=== PATIENT | male | born 1935 | race Caucasian/White ===

== ENCOUNTER 2016-11-04 09:11 | Emergency (ER) | payer MEDICARE, OTHER ==
[2015-09-14 12:54] VITALS: BMI 23.7
[~2016-11-04 09:11] MED LIST: BAYER CHEWABLE81 MG PO; COREG12.5 MG PO; COUMADIN5 MG PO; LASIX20 MG PO; LASIX40 MG PO; LIPITOR40 MG PO; PLAVIX75 MG PO; PROSCAR5 MG PO; ZYLOPRIM300 MG PO; entresto PO
[2016-11-04 09:39] LABS: BASOPHILS 0.2 % (0.0-2.0); EOSINOPHILS 2.1 % (0-7); HEMATOCRIT 46.5 % (42.0-54.0); HEMOGLOBIN 15.6 g/dL (13.5-17.5); IMMATURE GRANULOCYTES 0.2 % (0-5); LYMPHOCYTES 16.8 % (15-50); MCH 33.1 pg (26.0-34.0); MCHC 33.5 g/dL (31.0-37.0); MCV 98.7 fL (80.0-100.0); MEAN PLATELET VOLUME 10.7 fL (7.4-10.4); MONOCYTES 10.2 % (2-11); NEUTROPHILS 70.5 % (40-80); PLATELET COUNT 108 10x3/uL (130-400); RBC 4.71 10x6/uL (4.20-6.10); RDW 14.7 % (11.5-14.5); WBC 5.8 10x3/uL (4.8-10.8)
[2016-11-04 09:46] LABS: INR 2.16 (0.85-1.17); PROTIME 24.1 SECONDS (11.6-15.0)
[2016-11-04 09:53] LABS: ALBUMIN 4.2 g/dL (3.4-5.0); ANION GAP 13.6 mmol/L (8-16); BILIRUBIN - TOTAL 0.74 mg/dL (0.2-1.3); CALCIUM 9.5 mg/dL (8.5-10.1); CARBON DIOXIDE 25.6 mmol/L (21.0-32.0); CREATININE - SERUM 1.7 mg/dL (0.6-1.3); POTASSIUM - SERUM 4.2 mmol/L (3.5-5.1); PROTEIN - SERUM 6.7 g/dL (6.4-8.2)
[2016-11-04 10:19] LABS: APPEARANCE CLEAR (CLEAR); BILIRUBIN NEGATIVE (NEGATIVE); COLOR YELLOW (YELLOW); GLUCOSE NEGATIVE (NEGATIVE); KETONE NEGATIVE (NEGATIVE); LEUKOCYTE ESTERASE NEGATIVE (NEGATIVE); NITRITE NEGATIVE (NEGATIVE); PROTEIN TRACE mg/dL (NEGATIVE); SPECIFIC GRAVITY 1.015 (1.005-1.020); UROBILINOGEN NORMAL (NORMAL); WHITE CELLS - URINE 0-5 /hpf (0-5)
[2016-11-04 10:21] LABS: BACTERIA FEW /hpf (NONE SEEN); EPITHELIAL CELLS 0-5 /hpf (0-5); HYALINE CAST 0-5 /lpf (NONE SEEN); MUCUS <1+ /lpf (NONE SEEN); RED CELLS - URINE 0-5 /hpf (0-5)
== END 2016-11-04 10:36 | disposition home or self-care (01) ==
LOC: D.ER 09:11
PROVIDERS: Emergency Medicine
DX: K59.00 Constipation, unspecified (principal); N28.9 Disorder of kidney and ureter, unspecified; R73.9 Hyperglycemia, unspecified

== ENCOUNTER 2017-09-24 10:54 | Outpatient (CLI) | payer MEDICARE, OTHER ==
[~2017-09-24] VITALS: Ht 185.4 cm; Wt 85.0 kg
--- NOTE | ~2017-09-24 | HEMODYNAMI ---
PATIENT:JESUS MUHAMMAD MEDICAL RECORD: [id number] : 33 LOCATION:D.CAT ADMISSION DATE: 09/24/17 Generatedon:09/24/201713:39 Patient name: JESUS MUHAMMAD Patient #: [id number] SSN: : 1935 Date of study: 09/24/2017 Page: Of Hemodynamic Procedure Report Patient Data Patient Demographics Procedure consent was obtained First Name: JESUS Gender: Male Last Name: SABINA : 1935 Middle Initial: E Age: 82 year(s) Patient #: [id number] Race: Unknown Additional ID: [id number] Contact details [address]: [address] [place] [address] State: [place] City: [place] Zip code: [address] Past Medical History Allergies Allergen Reaction Date Comments Reported Penicillins 09/24/2017 Sulfa drugs 09/24/2017 Other allergy 09/24/2017 tetracycline Admission Admission Data Admission Date: 09/24/2017 Admission Time: 10:54 Height (in.): 72 BSA: 2.14 (m2) Height (cm.): 182.88 BMI: 27.53 (kg/m2) Weight (lbs.): 203 Weight (kg.): 92.08 Lab Results Lab Result Date: 09/24/2017 Lab Result Time: 0:00 Biochemistry Name Units Result Min Max BUN mg/dl 58 --(----)-* 7 18 Creatinine mg/dl 1.8 --(----)-* 0.6 1.3 CBC Name Units Result Min Max Hemoglobin g/dl 14.9 --(-*--)-- 13.5 17.5 Coagulation Name Units Result Min Max PT sec 20.1 --(----)-* 11.6 15 PTT sec 1.77 *-(----)-- 22.8 39.4 Procedure Procedure Types Cath Procedure Diagnostic Procedure LHC Coronaries w/Grafts Aortic Root Angiography Miscellaneous Procedures Moderate Sedation up to 15 minutes Procedure Description Procedure Date Procedure Date: 09/24/2017 Procedure Start Time: 13:12 Procedure End Time: 13:34 Procedure Staff Name Function Jono Victoria MD Performing Physician Valerie Jack RT Monitor Jordyn Zamudio RT Scrub Louis Rainey RN Nurse Procedure Data Cath Procedure Fluoroscopy Diagnostic fluoroscopy Total fluoroscopy Time: 6.2 time: 6.2 min min Diagnostic fluoroscopy Total fluoroscopy dose: 959 dose: 959 mGy mGy Contrast Material Contrast Material Type Amount (ml) Isovue 300 99 Entry Location Entry Primary Successful Side Size Upsize Upsize Entry Closure Succes sful Closure Location (Fr) 1 (Fr) 2 (Fr) Remarks Device Remarks Femoral Right 5 Fr Exoseal artery Estimated blood loss: 10 ml Diagnostic catheters Device Type Used For End Catheter Placement MULTIPACK JL 4.0 5Fr Procedure catheter DIAGNOSTIC JL 5 5Fr Procedure catheter ([id number]) DIAGNOSTIC AR 2 MOD 5 Fr Procedure catheter ([id number]) DIAGNOSTIC IM 5Fr Procedure catheter ([id number]) MULTIPACK Pigtail 5 Fr Aortic Root catheter Angiography Procedure Complications No complications Procedure Medications Medication Administration Route Dosage Oxygen NC 2 l/min Lidocaine 2% added to field 20 Heparin Flush Bag added to field 2 bags (1000units/500ml NS) 0.9% NaCl I.V. 100 ml/hr Versed I.V. 0.5 mg Fentanyl I.V. 25 mcg Versed I.V. 0.5 mg Fentanyl I.V. 25 mcg Fentanyl I.V. 25 mcg Hemodynamics Rest BSA: 2.14 (m2) HGB: 14.9 (g/dl) O2 Consumption: Estimated: 243.27 (ml/min) O2 Co nsumption indexed: Estimated:113.68 (ml/min/m) Heart Rate: 70 (bpm) Snapshots Pre Cath Intra NCS Post Cath Vital Signs Time Heart Resp SPO2 NIBP (mmHg) Rhythm Pain Sedation Rate (ipm) (%) Status Level (bpm) 13:01:15 70 17 100 126/62(102) Paced 0 (11) 10(A) , No pain 13:05:27 69 15 100 123/64(104) Paced 0 (11) 10(A) , No pain 13:09:39 84 13 97 113/58(96) Paced 0 (11) 9(A) , No pain 13:13:51 86 17 97 105/56(84) Paced 0 (11) 9(A) , No pain 13:18:01 81 17 96 102/55(81) Paced 0 (11) 9(A) , No pain 13:22:11 68 15 95 105/52(68) Paced 0 (11) 9(A) , No pain 13:26:20 69 15 95 99/55(80) Paced 0 (11) 9(A) , No pain 13:30:28 69 16 96 104/55(76) Paced 0 (11) 9(A) , No pain 13:34:38 69 15 100 107/56(83) Paced 0 (11) 10(A) , No pain Medications Time Medication Route Dose Verified Delivered Reason Notes Effe ctiveness by by 12:59:47 Oxygen NC 2 Jono Buffie used for l/min Julien Rainey RN procedure 12:59:55 Lidocaine 2% added 20ml Jono Jono for local to vial Julien Victoria MD anesthetic field 13:00:01 Heparin Flush added 2 Jono Jono used for Bag to bags Julien Victoria MD procedure (1000units/500ml field NS) 13:00:09 0.9% NaCl I.V. 100 Jono Buffie Per ml/hr Julien Rainey RN physician 13:03:59 Versed I.V. 0.5 Jono Buffie for mg Julien Rainey RN sedation 13:04:04 Fentanyl I.V. 25 Jono Buffie for mcg Julien Rainey RN sedation 13:09:31 Versed I.V. 0.5 Jono Buffie for mg Julien Rainey RN sedation 13:09:34 Fentanyl I.V. 25 Jono Buffie for mcg Julien Rainey RN sedation 13:12:50 Fentanyl I.V. 25 Jono Buffie for mcg Julien Rainey RN sedation Procedure Log Time Note 12:45:52 Patient Height : 72 inches 12:45:56 Patient Weight : 203 lbs 12:48:58 Lab Result : BUN 58 mg/dl 12:48:58 Lab Result : PT 20.1 sec 12:48:58 Lab Result : PTT 1.77 sec 12:48:58 Lab Result : Creatinine 1.8 mg/dl 12:48:58 Lab Result : Hemoglobin 14.9 g/dl 12:49:30 Diagnostic Cath status Elective 12:49:38 Louis Rainey RN sent for patient. Start room use. 12:49:40 Time tracking: Regular hours 12:49:44 Plan of Care:Hemodynamics will remain stable., Cardiac rhythm will remain stable., Comfort level will be maintained., Respiratory function will remain adequate., Patient/ family verbilizes understanding of procedure., Procedure tolerated without complication., Recovers from procedure without complications.. 12:50:14 Patient received from Pre/Post Procedure Room to CCL 2 Alert and oriented. Tansferred to table in Supine position. 12:59:47 Oxygen 2 l/min NC was administered by Louis Rainey RN; used for procedure; 12:59:55 Lidocaine 2% 20ml vial added to field was administered by Jono Victoria MD; for local anesthetic; 12:59:58 Warm blankets applied, and brook hugger turned on for patient comfort. 12:59:58 Correct patient and procedure confirmed by team. 12:59:59 ECG and BP/O2 sat monitors applied to patient. 13:00:01 Heparin Flush Bag (1000units/500ml NS) 2 bags added to field was administered by Jono Victoria MD; used for procedure; 13:00:02 Signed procedure consent form obtained from patient. 13:00:04 Vital chart was started 13:00:09 0.9% NaCl 100 ml/hr I.V. was administered by Louis Rainey RN; Per physician; 13:00:09 Rhythm: sinus rhythm 13:00:11 Full Disclosure recording started 13:00:19 H&P Date Dictated: 09/11/2017 Within 30 days and on chart., H&P Addendum completed by physician on day of procedure. (MUST COMPLETE FOR ALL OUTPATIENTS). 13:00:20 Pre-procedure instructions explained to patient. 13:00:21 Pre-op teaching completed and patient verbalized understanding. 13:00:22 Family in patients room. 13:00:24 Patient NPO since Midnight. 13:00:31 Patient allergic to Penicillins 13:00:36 Patient allergic to Sulfa drugs 13:00:49 Patient allergic to Other allergytetracycline 13:00:52 Is the patient allergic to Iodine/contrast media? No. 13:01:04 Is patient on blood thinner?Yes 13:01:11 Patient diabetic? Yes. 13:01:16 If diabetic: On Metformin? No 13:01:42 Coumadin 09/20/17 13:01:51 Previous problem with sedation/anesthesia? No ? 13:01:52 Snore? Yes 13:01:52 Sleep apnea? No 13:01:53 Deviated septum? No 13:01:54 Opens mouth fully? Yes 13:01:55 Sticks out tongue? Yes 13:01:57 Airway obstruction? No ? 13:01:59 Dentures? No ? 13:02:31 Pre procedure: right dorsailis pedis pulse 2+ Normal; easily identifiable; not easily obliterated 13:02:36 Patient pain scale 0/10 ?. 13:02:42 IV patent on arrival in left hand with 0.9% NaCl at [facility]. 13:02:44 Lab results completed and on chart. 13:02:48 Right groin area was prepped with chlora-prep and draped in sterile fashion 13:02:48 Alarms reviewed by R. N. 13:02:49 Sharps counted by scrub and verified by R.N. 13:02:54 Use device set Femoral Dx 13:02:55 ACIST Syringe (55603) opened to sterile field. 13:02:56 Bag Decanter (2002S) opened to sterile field. 13:02:56 Medline Cath Pack ([id number]) opened to sterile field. 13:02:56 SHEATH 5FR [place] (ZBI297) opened to sterile field. 13:02:57 DIAGNOSTIC WIRE .035 260cm J wire (649119) opened to sterile field. 13:02:59 ACIST Hand Control (87538) opened to sterile field. 13:02:59 ACIST Manifold (56674) opened to sterile field. 13:03:00 DIAGNOSTIC Multipack 5Fr catheter set ([id number]) opened to sterile field. 13:03:00 Tegaderm 4 x 4 (1626W) opened to sterile field. 13:03:01 PERCUTANEOUS ENTRY 19GA needle opened to sterile field. 13:03:12 Final Timeout: patient, procedure, and site verified with staff and physician. All members of the team are in agreement. 13:03:13 Right groin site verified by team. 13:03:17 Physical assessment completed. ASA score P 2 - A patient with mild systemic disease as per Jono Victoria MD. 13:03:20 Sedation plan: IV Moderate Sedation Medication:Versed, Fentanyl 13:03:23 Baseline sample Acquired. 13:03:59 Versed 0.5 mg I.V. was administered by Louis Rainey RN; for sedation; 13:04:04 Fentanyl 25 mcg I.V. was administered by Louis Rainey RN; for sedation; 13:06:17 Baseline sample Acquired. 13:09:31 Versed 0.5 mg I.V. was administered by Louis Rainey RN; for sedation; 13:09:34 Fentanyl 25 mcg I.V. was administered by Louis Rainey RN; for sedation; 13:12:38 Procedure started. 13:12:50 Fentanyl 25 mcg I.V. was administered by Louis Rainey RN; for sedation; 13:12:51 Local anesthetic to right femoral artery with Lidocaine 2% by Jono Victoria MD.INITIAL ACCESS ONLY 13:13:19 A 5 Fr sheath was inserted into the Right Femoral artery 13:16:08 A MULTIPACK JL 4.0 5Fr catheter was advanced over the wire and used for Procedure. 13:16:57 Catheter removed. 13:17:53 A DIAGNOSTIC JL 5 5Fr catheter ([id number]) was advanced over the wire and used for Procedure. 13:18:00 LCA angiography performed. 13:20:31 Catheter removed. 13:21:11 A DIAGNOSTIC AR 2 MOD 5 Fr catheter ([id number]) was advanced over the wire and used for Procedure. 13:21:29 SVG angiography performed. 13:21:40 SVG to RCA angiography performed. 13:25:47 Catheter removed. 13:26:33 A DIAGNOSTIC IM 5Fr catheter ([id number]) was advanced over the wire and used for Procedure. 13:28:12 Catheter removed. 13:28:30 A MULTIPACK Pigtail 5 Fr catheter was advanced over the wire and used for Aortic Root Angiography. 13:31:25 Aortic Root visualized 13:31:28 Catheter removed. 13:31:35 EXOSEAL 5Fr (EX500) opened to sterile field. 13:32:40 Sheath removed intact; hemostasis achieved with Exoseal to the Right Femoral artery. 13:32:46 Procedure ended.(Physican Out) 13:32:57 Fluoroscopy time 06.20 minutes. 13:33:03 Flurop Dose total: 959 13:33:03 Fluoroscopy dose: 959 mGy 13:33:07 Contrast amount:Isovue 300 99ml. 13:33:09 Sharps counted by scrub and verified by R.N. 13:33:16 Insertion/operative site no bleeding no hematoma. 13:33:19 Post-op/insertion site Right Femoral artery dressed using a 4 x 4 and Tegaderm. 13:33:29 Post Procedure Pulses reassessed and unchanged 13:33:34 Post-procedure physical assessment completed. ASA score P 2 - A patient with mild systemic disease as per Jono Victoria MD. 13:33:39 Post procedure rhythm: unchanged. 13:33:44 Estimated blood loss: 10 ml 13:33:46 Post procedure instruction explained to patient.Patient verbalizes understanding. 13:33:47 Patient needs reinforcement of post procedure teaching. 13:33:54 Procedure and supply charges have been captured, reviewed, submitted and are correct. 13:34:31 Procedure Complication : No complications 13:34:33 Vital chart was stopped 13:34:34 See physician's report for complete and final results. 13:34:36 Report given to Pre/Post Procedure Room. 13:34:40 Patient transfered to Pre/Post Procedure Room with Stretcher. 13:34:42 Procedure ended. 13:34:42 Full Disclosure recording stopped 13:34:45 End room use (Document Last) 13:37:10 Procedure type changed to Cath procedure, Diagnostic procedure, LHC, Coronaries w/Grafts, Aortic Root Angiography, Miscellaneous Procedures, Moderate Sedation up to 15 minutes Device Usage Item Name Manufacture Quantity Catalog Hospital Part Current Minimal Lot# / Number Charge Number Stock Stock Serial# Code ACIST Acist 1 69879 368842 955942 809769 20 Syringe Medical (60277) Systems Inc Bag Decanter Microtek 1 2001S 559444 41639 235255 5 () Medical Inc. Medline Cath Cardinal 1 [id number] 539646 00850 330707 5 Pack Health ([id number]) SHEATH 5FR Terumo 1 [id number] 147650 566414 533702 40 [place] (NQL364) DIAGNOSTIC [place] 1 277390 813164 916795 719316 30 WIRE .035 260cm J wire (472090) ACIST Hand Acist 1 65504 989722 966407 462612 5 Control Medical (72545) Systems Inc ACIST Acist 1 61316 705251 944168 796793 5 Manifold Medical (52507) Systems Inc DIAGNOSTIC Cardinal 1 [id number] 849326 53228 759711 30 Multipack Health 5Fr catheter set (ZV6545) Tegaderm 4 x 3M 1 1626W 725148 376368 737413 5 4 (1626W) PERCUTANEOUS Cook Medical 1 Z40831 804839 494024 5 ENTRY 19GA needle MULTIPACK JL Cardinal 1 108301 5 4.0 5Fr Health catheter DIAGNOSTIC Cardinal 1 [id number] 123330 603588 452564 5 JL 5 5Fr Health catheter (591400I) DIAGNOSTIC Cardinal 1 [id number] 012199 403925 274346 20 AR 2 MOD 5 Health Fr catheter (345512V) DIAGNOSTIC Cardinal 1 875375W 589036 962834 344235 5 IM 5Fr Health catheter (818293V) MULTIPACK Cardinal 1 561324 5 Pigtail 5 Fr Health catheter EXOSEAL 5Fr Cardinal 1 EX500 298882 838819 557222 10 (EX500) Health Signature Audit [place] Stage Time Signature Unsigned Intra-Procedure 09/24/2017 Valerie Jack 1:39:01 PM RT(R) Signatures Monitor : Valerie Jack Signature : RT Date : Time : [place] [id number] [place] [address]
[2017-09-24] MEDS ORDERED: GLUCOTROL ER2.5 MG PO (11:17)
[2017-09-24] MEDS ORDERED: RESTORIL15 MG PO (11:17)
[2017-09-24] MEDS ORDERED: ULTRAM50 MG PO (11:18)
[2017-09-24 11:23] VITALS: BP 123/54; Ht 185.4 cm; Wt 85.0 kg
[2017-09-24 11:32] LABS: BASOPHILS 0.4 % (0-2); EOSINOPHILS 3.4 % (0-7); HEMATOCRIT 43.5 % (42.0-54.0); HEMOGLOBIN 14.9 g/dL (13.5-17.5); IMMATURE GRANULOCYTES 0.4 % (0-5); LYMPHOCYTES 12.5 % (15-50); MCH 32.2 pg (26.0-34.0); MCHC 34.3 g/dL (31.0-37.0); MONOCYTES 7.8 % (2-11); NEUTROPHILS 75.5 % (40-80); RBC 4.63 10x6/uL (4.20-6.10); WBC 11.4 10x3/uL (4.8-10.8)
[2017-09-24 11:33] LABS: PLATELET COUNT 237 10x3/uL (130-400)
[2017-09-24 11:49] LABS: INR 1.77 (0.85-1.17); PROTIME 20.1 SECONDS (11.6-15.0)
[2017-09-24 11:50] LABS: ANION GAP 13.6 mmol/L (8-16); CALCIUM 10.2 mg/dL (8.5-10.1); CARBON DIOXIDE 27.7 mmol/L (21.0-32.0); CREATININE - SERUM 1.8 mg/dL (0.6-1.3); POTASSIUM - SERUM 4.3 mmol/L (3.5-5.1)
--- NOTE | 2017-09-24 14:05 | NUR ---
2L NC, NO RESP DISTRESS. RIGHT GROIN 5F EXOSEAL CDI, NO BLEEDING OR HEMATOMA NOTED. NO C/O PAIN OR NAUSEA. VSS. AT BEDSIDE, CALL LIGHT WITHIN REACH.
--- NOTE | 2017-09-24 14:35 | NUR ---
2L NC, NO RESP DISTRESS. RIGHT GROIN 5F EXOSEAL CDI, NO BLEEDING OR HEMATOMA NOTED. NO C/O PAIN OR NAUSEA. VOIDED 300CC OF CLEAR YELLOW URINE. VSS. WILL CONTINUE TO MONITOR CLOSELY.
--- NOTE | 2017-09-24 14:50 | NUR ---
RIGHT GROIN 5F EXOSEAL CDI, NO BLEEDING OR HEMATOMA NOTED. 2L NC, NO RESP DISTRESS. NO C/O AT THIS TIME. VSS. FAMILY AT BEDSIDE, CALL LIGHT WITHIN REACH.
--- NOTE | 2017-09-24 15:22 | NUR ---
HOB ELEVATED 30 DEGREES. RIGHT GROIN 5F EXOSEAL CDI, NO BLEEDING NOTED. WILL CONTINUE TO MONITOR CLOSELY.
--- NOTE | 2017-09-24 15:45 | NUR ---
LEFT WRIST PIV D/C'D WITH CATHETER INTACT, BAND AID TO SITE. UP TO BEDSIDE TO GET DRESSED.
--- NOTE | 2017-09-24 15:52 | NUR ---
DISCHARGE INSTRUCTIONS GIVEN, VERBALIZED UNDERSTANDING.
--- NOTE | 2017-09-24 16:04 | NUR ---
TAKEN OUT VIA WHEELCHAIR BY CATH WELT SEWER. LEFT FACILITY WITH FAMILY AND ALL PERSONAL BELONGINGS.
== END 2017-09-24 16:04 | disposition home or self-care (01) ==
LOC: D.CATH 10:54
PROVIDERS: Internal Medicine Cardiovascular Disease
DX: I25.110 Atherosclerotic heart disease of native coronary artery with unstable angina pectoris (principal); R06.02 Shortness of breath; R60.9 Edema, unspecified; Z01.812 Encounter for preprocedural laboratory examination

== ENCOUNTER 2019-02-08 06:32 | Inpatient (IN) | payer MEDICARE, OTHER ==
[~2019-02-08 06:32] MED LIST changes: +GLUCOTROL ER2.5 MG PO; +RESTORIL15 MG PO; +ULTRAM50 MG PO
[2019-02-08 06:52] LABS: BASOPHILS 0.2 % (0-2); EOSINOPHILS 3.1 % (0-7); HEMATOCRIT 44.7 % (42.0-54.0); HEMOGLOBIN 15.5 g/dL (13.5-17.5); IMMATURE GRANULOCYTES 0.4 % (0-5); LYMPHOCYTES 22.1 % (15-50); MCH 33.1 pg (26.0-34.0); MCHC 34.7 g/dL (31.0-37.0); MCV 95.5 fL (80.0-100.0); MONOCYTES 10.8 % (2-11); NEUTROPHILS 63.4 % (40-80); RBC 4.68 10x6/uL (4.20-6.10); RDW 15.1 % (11.5-14.5); WBC 5.6 10x3/uL (4.8-10.8)
[2019-02-08 06:55] LABS: PLATELET COUNT 126 10x3/uL (130-400)
[2019-02-08 07:06] LABS: APPEARANCE CLEAR (CLEAR); BILIRUBIN NEGATIVE (NEGATIVE); COLOR YELLOW (YELLOW); GLUCOSE NEGATIVE (NEGATIVE); KETONE NEGATIVE (NEGATIVE); NITRITE NEGATIVE (NEGATIVE); PROTEIN NEGATIVE (NEGATIVE); SPECIFIC GRAVITY 1.015 (1.005-1.020); UROBILINOGEN NORMAL (NORMAL)
--- NOTE | 2019-02-08 07:14 | NUR ---
BEDSIDE REPORT HANDED OFF TO JEZ ORTIZ VIA SBAR.
[2019-02-08 07:21] LABS: ALBUMIN 3.7 g/dL (3.4-5.0); ANION GAP 14.3 mmol/L (8-16); BILIRUBIN - TOTAL 0.53 mg/dL (0.2-1.3); CALCIUM 9.5 mg/dL (8.5-10.1); CREATININE - SERUM 1.5 mg/dL (0.6-1.3); POTASSIUM - SERUM 4.3 mmol/L (3.5-5.1); PROTEIN - SERUM 6.8 g/dL (6.4-8.2)
[2019-02-08 07:28] LABS: TROPONIN-I 0.017 ng/mL (0.000-0.060)
--- NOTE | 2019-02-08 08:01 | NUR ---
PT C/O PAIN AND BURNING IN RIGHT ARM S/P MSO4 BEING GIVEN FLUSHED WITH NORMAL SALINE AND BOLUS IS INFUSING. NOTIFIED. NO ORDERS AT THIS TIME.
--- NOTE | 2019-02-08 08:35 | NUR ---
PT TO CT VIA STRETCHER.
--- NOTE | 2019-02-08 08:58 | NUR ---
PT RESTING ON LEFT SIDE STATES HE IS FEELING BETTER.
--- NOTE | 2019-02-08 12:25 | NUR ---
RECIEVED TO ROOM FROM ER VIA WC. SL TO R HAND PATENT. BRUISING NOTED TO BILAT ARMS. STATES THAT ABDOMINAL PAIN STARTED AROUND MIDNIGHT LAST NIGHT.
[2019-02-08 12:31] VITALS: BP 126/44; BMI 25.2
--- NOTE | 2019-02-08 12:40 | NUR ---
MORPHINE AND ZOFRAN GIVEN SLOW IVP FOR C/O ABDOMINAL PAIN.
[2019-02-08 13:59] LABS: PROTIME 46.6 SECONDS (11.6-15.0)
[2019-02-08 14:40] LABS: INR 5.15 (0.85-1.17)
--- NOTE | 2019-02-08 15:20 | NUR ---
SPOKE WITH DR MOSER REGARDING CRITICAL PT/INR. RECIEVED ORDERS TO HOLD COUMADIN AND RECHECK PT/INR IN AM.
--- NOTE | 2019-02-08 15:55 | NUR ---
MARINE ENGINE MACHINIST SHOWING PACED 69 PER TECH.
[2019-02-08 16:35] VITALS: BP 106/51
--- NOTE | 2019-02-08 17:32 | NUR ---
RESTING QUIETLY IN BED READING NEWSPAPER. AT BEDSIDE. DENIES ANY NEEDS AT THIS TIME.
--- NOTE | 2019-02-08 18:57 | NUR ---
PT IN BED. A&O X 4. AT BEDSIDE. ASSISTED PT TO BATHROOM PER REQUEST. DENIES FURTHER NEEDS AT THIS TIME.
[2019-02-08 20:08] VITALS: BP 105/60
--- NOTE | 2019-02-08 23:17 | NUR ---
I have reviewed this patient and I concur with the Shift Assessment completed by the Licensed Practical Nurse today this shift.
[2019-02-09 00:41] VITALS: BP 110/66
[2019-02-09 05:42] VITALS: BP 107/62
[2019-02-09 06:16] LABS: BASOPHILS 0.2 % (0-2); EOSINOPHILS 2.8 % (0-7); HEMATOCRIT 39.8 % (42.0-54.0); HEMOGLOBIN 13.5 g/dL (13.5-17.5); IMMATURE GRANULOCYTES 0.2 % (0-5); LYMPHOCYTES 20.4 % (15-50); MCH 32.6 pg (26.0-34.0); MCHC 33.9 g/dL (31.0-37.0); MCV 96.1 fL (80.0-100.0); MEAN PLATELET VOLUME 10.5 fL (7.4-10.4); MONOCYTES 8.3 % (2-11); NEUTROPHILS 68.1 % (40-80); PLATELET COUNT 118 10x3/uL (130-400); RBC 4.14 10x6/uL (4.20-6.10); RDW 15.3 % (11.5-14.5); WBC 5.1 10x3/uL (4.8-10.8)
[2019-02-09 06:43] LABS: ALBUMIN 3.1 g/dL (3.4-5.0); BILIRUBIN - TOTAL 0.56 mg/dL (0.2-1.3); CREATININE - SERUM 1.4 mg/dL (0.6-1.3); INR 5.47 (0.85-1.17); PROTEIN - SERUM 5.5 g/dL (6.4-8.2); PROTIME 48.9 SECONDS (11.6-15.0)
--- NOTE | 2019-02-09 09:40 | NUR ---
PATIENT ALERT AND ORIENTED THIS MORNING SITTING UP IN CHAIR. NO COMPLAINTS OR PAIN OF DISCOMFORT AT THIS TIME. ATE 100% OF BREAKFAST. XRAY CALLED AND PATIENT WILL HAVE GALL BLADDER STUDY TOMORROW. TO BE NPO AFTER MIDNIGHT AND NO PAIN MEDICATION. INFORMED PATIENT OF THIS. WILL CONTINUE TO MONITOR. CALL LIGHT WITHIN REACH.
[2019-02-09 10:33] VITALS: BP 106/68
--- NOTE | 2019-02-09 14:15 | NUR ---
PATIENT WAS TAKEN FOR GI STUDY VIA WHEELCHAIR.
[2019-02-09 16:26] VITALS: BP 129/63
--- NOTE | 2019-02-09 17:49 | HP ---
PATIENT: JESUS MUHAMMAD MEDICAL RECORD: [id number] ACCOUNT: [id number] LOCATION:[facility] D.1204 : 33 ADMISSION DATE: 02/08/19 PCP: ATTILA AGUIRRE MD HISTORY AND PHYSICAL EXAMINATION DATE OF ADMISSION: 02/08/2019. CHIEF COMPLAINT: Abdominal pain. HISTORY OF PRESENT ILLNESS: This is an 84-year-old white male who had a sudden onset of right upper quadrant abdominal pain started around midnight on 02/07/2019. It woke him up. The pain then moved diffusely. He denies fever or chills. No significant nausea or vomiting. He never had pain like this before and it did radiate to his back. He denies chest pain or shortness of breath. In the ER, his lab was fairly unremarkable. CT of the abdomen and pelvis without contrast showed some cholelithiasis and some distention of gallbladder. He is admitted for further evaluation. PAST MEDICAL AND SURGICAL HISTORY: Coronary artery disease, hyperlipidemia, hypertension, arthritis, BPH, diabetes, atrial fibrillation, and CHF. PAST SURGICAL HISTORY: He has had defibrillator/pacemaker placed. ALLERGIES: LYRICA, MACRODANTIN, METFORMIN, PENICILLIN, SULFA, AND TETRACYCLINE. HOME MEDICATIONS: Furosemide 40 mg twice a day, finasteride 5 mg once a day, tramadol only if needed, allopurinol 300 mg once a day, temazepam 15 mg q.h.s. p.r.n. sleep, Entresto one p.o. b.i.d., warfarin 5 mg once a day, glimepiride ER 2.5 once a day, and carvedilol 12.5 twice a day. HABITS: Former smoker, occasional alcohol, no illicit drug use. SOCIAL HISTORY: , retired from the [employer] up in the [place]. 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 FAMILY HISTORY: Both parents are . There is a history of cardiovascular disease and diabetes in his parents. Sibling with hypertension. REVIEW OF SYSTEMS: GENERAL: No major weight changes. HEENT: No particular sinus or allergy problems. RESPIRATORY: No history of asthma, COPD. CARDIAC: Does have a history of heart disease, atrial fibrillation, and congestive heart failure. GASTROINTESTINAL: No significant diarrhea, constipation, or heartburn. GENITOURINARY: He has BPH. MUSCULOSKELETAL: He has arthritic aches and pains. NEUROLOGIC: No migraines or seizures. PSYCHIATRIC: Denies depression or melancholia. PHYSICAL EXAMINATION: VITAL SIGNS: Temperature 98.1, pulse 78, respirations 20, and blood pressure 126/44. GENERAL: He is awake and alert. He does not appear to be in acute distress. SKIN: Warm and dry. HISTORY AND PHYSICAL [id number] SABINAJESUS HEENT: Grossly within normal limits. NECK: Supple. No bruit. HEART: Regular rate and rhythm. LUNGS: Clear. ABDOMEN: With some mild diffuse tenderness at this time. There is some increased tenderness in the right upper quadrant. No guarding or rebound. No mass. RECTAL: Not done. EXTREMITIES: No edema. LABORATORY DATA: Urinalysis is normal. CBC showed a white count of 5600, hemoglobin 15.5, platelets are little low at 126,000. Basic metabolic panel is all okay except BUN 46 and creatinine 1.5. Liver functions are all normal. Troponin normal. Amylase and lipase were okay. CT of the abdomen and pelvis without contrast showed some cholelithiasis, some distention of gallbladder. ASSESSMENT: 1. Right upper quadrant pain started late last night, now more diffuse pain. 2. Cholelithiasis on CT of abdomen. PLAN: We will admit. We will check INR. We will get an ultrasound of the gallbladder. Other tests or procedures as warranted. TRANSINT:[id number] Voice Confirmation ID: [id number] DOCUMENT ID: [id number] MACI MOSER MD at 1749 CC: [id number] DICTATION DATE: 02/08/192322 PLANT HEALTH MANAGER: 02/09/19 0011 ADM IN [facility] [address] [place] [address]
--- NOTE | 2019-02-09 18:26 | NUR ---
PATIENT BACK FROM GI TEST. IV RESTARTED TO L FOREARM. FED LUNCH SINCE HE WAS VERY HUNGRY. AT BEDSIDE. BS 121. WILL CONTINUE TO MONITOR. CALL LIGHT WITHIN REACH.
[2019-02-09 21:31] VITALS: BP 106/40
--- NOTE | 2019-02-09 23:12 | NUR ---
PT C/O OF HAVRaman'T HAS BM FOR FOUR DAYS, CALLED DR MOSER AND ORDERED MILK OF MAGNESIA FOR PT.
[2019-02-10 00:19] VITALS: BP 116/70
--- NOTE | 2019-02-10 00:36 | NUR ---
I HAVE REVIEWED THIS PATIENT AND I CONCUR WITH THE SHIFT ASSESSMENT COMPLETED BY THE LICENSED PRACTICAL NURSE THIS SHIFT.
[2019-02-10 04:30] VITALS: BP 112/68
[2019-02-10 06:53] LABS: BASOPHILS 0.2 % (0-2); EOSINOPHILS 2.9 % (0-7); HEMATOCRIT 40.9 % (42.0-54.0); HEMOGLOBIN 13.6 g/dL (13.5-17.5); IMMATURE GRANULOCYTES 0.2 % (0-5); LYMPHOCYTES 24.3 % (15-50); MCH 32.2 pg (26.0-34.0); MCHC 33.3 g/dL (31.0-37.0); MCV 96.9 fL (80.0-100.0); MEAN PLATELET VOLUME 10.3 fL (7.4-10.4); MONOCYTES 9.3 % (2-11); NEUTROPHILS 63.1 % (40-80); PLATELET COUNT 118 10x3/uL (130-400); RBC 4.22 10x6/uL (4.20-6.10); RDW 15.3 % (11.5-14.5); WBC 5.6 10x3/uL (4.8-10.8)
[2019-02-10 07:01] LABS: ANION GAP 10.2 mmol/L (8-16); CARBON DIOXIDE 28.8 mmol/L (21.0-32.0); CREATININE - SERUM 1.6 mg/dL (0.6-1.3)
[2019-02-10 07:04] LABS: INR 4.58 (0.85-1.17); PROTIME 42.5 SECONDS (11.6-15.0)
[2019-02-10 07:30] VITALS: BP 137/69
--- NOTE | 2019-02-10 07:36 | NUR ---
Moose FROM DR. AGUIRRE DULIVONX SUPP Q4HP.
--- NOTE | 2019-02-10 10:10 | NUR ---
PT STATES HE HAD RESULTS FROM SUPPOSITORY. HE STATES HE HAD A LARGE BM.
[2019-02-10 12:54] VITALS: BMI 25.2
[2019-02-10 13:02] VITALS: BP 108/44
--- NOTE | 2019-02-10 14:16 | NUR ---
ALERT AND ORIENTED X4. DULCOLAX SUPP AFFECTIVE. AGREE WITH RETAIL COVERAGE MERCHANDISER ASSESSMENT. PALMA ASHLEY RESUME PLAN OF CARE AND SAFETY PRECAUTIONS.
[2019-02-10 16:56] VITALS: BP 121/53
--- NOTE | 2019-02-10 19:26 | NUR ---
AT BED SIDE. CALL LIGHT IN REACH.
[2019-02-10 20:15] VITALS: BP 118/52
--- NOTE | 2019-02-11 00:08 | NUR ---
REST IN BED, CALL LIGHT IN REACH.
[2019-02-11 01:34] VITALS: BP 119/57
--- NOTE | 2019-02-11 03:44 | NUR ---
REST QUIETLY IN BED, CALL LIGHT IN REACH.
[2019-02-11 05:52] VITALS: BP 134/67
[2019-02-11 06:18] LABS: BASOPHILS 0.2 % (0-2); EOSINOPHILS 2.9 % (0-7); HEMATOCRIT 41.7 % (42.0-54.0); HEMOGLOBIN 13.8 g/dL (13.5-17.5); IMMATURE GRANULOCYTES 0.2 % (0-5); LYMPHOCYTES 22.6 % (15-50); MCH 32.2 pg (26.0-34.0); MCHC 33.1 g/dL (31.0-37.0); MCV 97.4 fL (80.0-100.0); MEAN PLATELET VOLUME 10.9 fL (7.4-10.4); MONOCYTES 10.6 % (2-11); NEUTROPHILS 63.5 % (40-80); PLATELET COUNT 126 10x3/uL (130-400); RBC 4.28 10x6/uL (4.20-6.10); RDW 15.1 % (11.5-14.5); WBC 5.5 10x3/uL (4.8-10.8)
[2019-02-11 06:26] LABS: ANION GAP 12.5 mmol/L (8-16); CALCIUM 9.3 mg/dL (8.5-10.1); CARBON DIOXIDE 26.3 mmol/L (21.0-32.0); CREATININE - SERUM 1.7 mg/dL (0.6-1.3); POTASSIUM - SERUM 3.8 mmol/L (3.5-5.1)
[2019-02-11 06:36] LABS: INR 2.69 (0.85-1.17); PROTIME 27.8 SECONDS (11.6-15.0)
--- NOTE | 2019-02-11 07:20 | NUR ---
INITIAL ROUNDING ON THE PATIENT, HE IS AWAKE AND RESTING IN THE BED. HE DENIES PAIN, CALL LIGHT IN REACH
[2019-02-11 08:49] VITALS: BP 107/61
--- NOTE | 2019-02-11 10:32 | MORECARE ---
CASE MANAGEMENT DISCHARGE SUMMARY PATIENT: JESUS MUHAMMAD UNIT: [id number] ADM DATE: 02/10/19 AGE: 84 : 34 SEX: M ROOM/BED: D.1204 AUTHOR: GEORGE,DOC PHYSICIAN: REFERRING PHYSICIAN: MACI MOSER MD DATE OF SERVICE: 02/11/19 Discharge Plan Patient Name: JESUS MUHAMMAD [facility] [facility] 1935 Planned Disposition: Home Anticipated Discharge Date: 02/09/19 Discharge Date: Expected LOS: -1 Initial Reviewer: [email or web address] Initial Review Date: 02/09/2019 Generated: 02/11/19 11:32 am Comments DCP- Discharge Planning Updated by [email or web address]: Nita Fernandez on 02/11/19 9:[address] Patient Name: JESUS MUHAMMAD Admission Status: ER Accout number: [id number] Admission Date: 02-10-2019 : 1935 Admission Diagnosis: Attending: MACI MOSER Current LOS: 1 Anticipated DC Date: 02-09-2019 Planned Disposition: Home Primary Insurance: MEDICARE A & B Discharge Planning Comments: CM met with patient about discharge planning. CM explained CM role and verbal consent was given to do dc assessment. CM educated on Home Health, DME and rehab services that are available. Patient states his discharge plan is to return to home . States home environment is safe for DC. Denies any discharge planning needs at this time. States or son will drive him home upon discharge. CM will continue to follow and assist as needed with discharge planning needs. Parquet Floor Layer: Nita Fernandez DCPIA - Discharge Planning Initial Assessment Updated by [email or web address]: Nita Fernandez on 02/11/19 10:31 am * Is the patient Alert and Oriented? Yes * How many steps to enter\exit or inside your home? na * PCP gambian * Pharmacy [facility] * Preadmission Environment Home with Family * ADLs Independent * Verbal permission to speak to the caregivers and representatives has been obtained from the patient. N/A * Community resources currently utilized None * Additional services required to return to the preadmission environment? No * Can the patient safely return to the preadmission environment? Yes * Has this patient been hospitalized within the prior 30 days at any hospital? No Patient Name: JESUS MUHAMMAD Page [id number] at 1032 All edits/amendments must be made on the electronic document DICTATION DATE: 02/11/191031 CREDIT CONTROL ADMINISTRATOR: ASHISH 02/11/191031 RPT#: [id number] DC DATE: STATUS: ADM IN [facility] [address] [place] [address] END OF REPORT
[2019-02-11 17:07] VITALS: BP 138/56
--- NOTE | 2019-02-11 19:45 | NUR ---
PT LYING IN BED. CALL LIGHT IN REACH. PT DENIES NEEDS OR PAIN AT THIS TIME. A/O X4. BED IN LOW. SIDE RAILS X2. IN ROOM. RESP EVEN AND UNLABORED.
[2019-02-11 20:00] VITALS: BP 104/62
[2019-02-12] VITALS (9 sets, daily range): BP systolic 110–158; BP diastolic 51–63
[2019-02-12 05:14] LABS: BASOPHILS 0.4 % (0-2); EOSINOPHILS 3.1 % (0-7); HEMATOCRIT 40.1 % (42.0-54.0); HEMOGLOBIN 13.6 g/dL (13.5-17.5); IMMATURE GRANULOCYTES 0.4 % (0-5); LYMPHOCYTES 20.1 % (15-50); MCH 32.8 pg (26.0-34.0); MCHC 33.9 g/dL (31.0-37.0); MCV 96.6 fL (80.0-100.0); MEAN PLATELET VOLUME 10.8 fL (7.4-10.4); MONOCYTES 10.3 % (2-11); NEUTROPHILS 65.7 % (40-80); PLATELET COUNT 119 10x3/uL (130-400); RBC 4.15 10x6/uL (4.20-6.10); RDW 15.2 % (11.5-14.5); WBC 5.2 10x3/uL (4.8-10.8)
--- NOTE | 2019-02-12 05:32 | NUR ---
PT RESTING QUIETLY. CALL LIGHT IN REACH. DENIES NEEDS AT THIS TIME. WCTM
[2019-02-12 05:41] LABS: ANION GAP 10.6 mmol/L (8-16); CARBON DIOXIDE 29.1 mmol/L (21.0-32.0); CREATININE - SERUM 1.8 mg/dL (0.6-1.3); POTASSIUM - SERUM 3.7 mmol/L (3.5-5.1)
[2019-02-12 05:49] LABS: INR 1.54 (0.85-1.17); PROTIME 17.9 SECONDS (11.6-15.0)
--- NOTE | 2019-02-12 07:30 | NUR ---
ASSESSMENT COMPLETE. NPO FOR PROCEDURE TODAY. SL TO L FA. PLATEN PRESS FEEDER SHOWING PACED 69 PER TECH. DENIES ANY NEEDS AT THIS TIME.
--- NOTE | 2019-02-12 10:50 | NUR ---
IV TO L FA LEAKING. IV REMVOED. CATHETER TIP INTACT. UNABLE TO RESITE IV X 2 ATTEMPTS.
--- NOTE | 2019-02-12 11:40 | NUR ---
20 GUAGE SITED TO LEFT WRIST BY KALINA RICOBANQUET CHEF X 1 ATTEMPT.
--- NOTE | 2019-02-12 12:50 | NUR ---
OFF FLOOR TO OR VIA STRETCHER.
[2019-02-12] MEDS ORDERED: HYDROCODON-ACE1 EAC7 PO (14:40)
--- NOTE | 2019-02-12 15:58 | NUR ---
RECEIVED PATIENT FROM PACU. POST-VITAL SIGNS AT 1545 ARE STABLE. THE PATIENT DENIES ANY PAIN.
--- NOTE | 2019-02-12 19:25 | NUR ---
PT SITTING UP IN BED ALERT AND ORIENTED. PT COMPLAINS OF 4/10 PAIN IN EPIGASTRIC Area AT INCISION SITE. PRN PAIN MED GIVEN. NO S/S OF DISTRESS. VITALS STABLE. BED LOW, SIDE RAILS UP X2, SLIP SOCKS ON, CALL LIGHT WITHIN REACH. WILL CONTINUE TO MONITOR.
--- NOTE | 2019-02-13 05:44 | NUR ---
PT COMPLAINS OF GAS/PRESSURE IN ABDOMEN. WILL CONTINUE TO MONITOR.
--- NOTE | 2019-02-13 07:15 | NUR ---
PT RESTING IN BED, EYES OPEN. POD 1 LAP SAADIA. 4 LAP SITES TO ABDOMEN, COVERED WITH STERISTRIPS. SITES C/D. PT STANDBY ASSIST. NO C/O PAIN. NO S/S OF ACUTE DISTRESS NOTED. ON ELECTROLYTE PROTOCOL. SCDS PRESENT, OFF AT THIS TIME. PT WANTED THEM OFF FOR A WHILE. PT ON TELEMETRY 83 PACED. PT ACHS. PT ON 2L, O2 NC. IV TO LEFT WRIST, SL. SITE PATENT WITHOUT REDNESS OR SWELLING. BOWEL SOUNDS ACTIVE. LUNGS CLEAR. PT DENIES ANYTHING FURTHER AT THIS TIME. CALL LIGHT IN REACH. WILL CONTINUE TO MONITOR.
[2019-02-13 08:09] VITALS: BP 136/61
--- NOTE | 2019-02-13 08:15 | NUR ---
PT O2 SAT @ 89% ON 2L O2, NC. INCREASED BY 1L, STILL STATING AT 89-90%. INCREASED BY ANOTHER 1L, STATING @ 91%. INCREASED TO A TOTAL OF 5L O2, PT STATING @ 95% ON 5L O2, NC.
--- NOTE | 2019-02-13 09:42 | MORECARE ---
CASE MANAGEMENT DISCHARGE SUMMARY PATIENT: JESUS MUHAMMAD UNIT: [id number] ADM DATE: 02/10/19 AGE: 84 : 34 SEX: M ROOM/BED: D.1204 AUTHOR: GEORGE,DOC PHYSICIAN: REFERRING PHYSICIAN: MACI MOSER MD DATE OF SERVICE: 02/13/19 Discharge Plan Patient Name: JESUS MUHAMMAD [facility] [facility] 1935 Planned Disposition: Home Anticipated Discharge Date: 02/09/19 Discharge Date: Expected LOS: -1 Initial Reviewer: [email or web address] Initial Review Date: 02/09/2019 Generated: 02/13/19 10:42 am Comments DCP- Discharge Planning Updated by [email or web address]: Nita Fernandez on 02/11/19 9:[address] Patient Name: JESUS MUHAMMAD Admission Status: ER Accout number: [id number] Admission Date: 02-10-2019 : 1935 Admission Diagnosis: Attending: MACI MOSER Current LOS: 1 Anticipated DC Date: 02-09-2019 Planned Disposition: Home Primary Insurance: MEDICARE A & B Discharge Planning Comments: CM met with patient about discharge planning. CM explained CM role and verbal consent was given to do dc assessment. CM educated on Home Health, DME and rehab services that are available. Patient states his discharge plan is to return to home . States home environment is safe for DC. Denies any discharge planning needs at this time. States or son will drive him home upon discharge. CM will continue to follow and assist as needed with discharge planning needs. Ecclesiastical Worker: Nita Fernandez DCPIA - Discharge Planning Initial Assessment Updated by [email or web address]: Nita Fernandez on 02/11/19 10:31 am * Is the patient Alert and Oriented? Yes * How many steps to enter\exit or inside your home? na * PCP [place] * Pharmacy [facility] * Preadmission Environment Home with Family * ADLs Independent * Verbal permission to speak to the caregivers and representatives has been obtained from the patient. N/A * Community resources currently utilized None * Additional services required to return to the preadmission environment? No * Can the patient safely return to the preadmission environment? Yes * Has this patient been hospitalized within the prior 30 days at any hospital? No Last DP export: 02/11/19 9:32 am Patient Name: JESUS MUHAMMAD Page [id number] at 0942 All edits/amendments must be made on the electronic document DICTATION DATE: 02/13/19940 VAMP PRESSER: ASHISH 02/13/19940 RPT#: [id number] DC DATE: STATUS: ADM IN [facility] [address] [place] [address] END OF REPORT
--- NOTE | 2019-02-13 09:50 | MORECARE ---
CASE MANAGEMENT DISCHARGE SUMMARY PATIENT: JESUS MUHAMMAD UNIT: [id number] ADM DATE: 02/10/19 AGE: 84 : 34 SEX: M ROOM/BED: D.1204 AUTHOR: GEORGE,DOC PHYSICIAN: REFERRING PHYSICIAN: MACI MOSER MD DATE OF SERVICE: 02/13/19 Discharge Plan Patient Name: JESUS MUHAMMAD Facility: [facility]:[place] : 1935 Planned Disposition: Home Anticipated Discharge Date: 02/09/19 Discharge Date: Expected LOS: -1 Initial Reviewer: [email or web address] Initial Review Date: 02/09/2019 Generated: 02/13/19 10:49 am Comments DCP- Discharge Planning Updated by [email or web address]: Gogo Anderson on 02/13/19 8:[address] POSSIBLE DISCHARGE TO HOME TODAY. HE WILL HAVE TRANSPORTATION TO HOME. HIS SON, ECHO, WILL PROVIDE TRANSPORTATION. PATIENT HAS BEEN FOR 60 YRS. LIVES W/ HIS . HE DOES NOT HAVE HOME HEALTH SERVICES. HIS IS ACTIVE WITH [employer]. HE DOES NOT FEEL HE WILL NEED ANY SERVICES. HE IS PRESENTLY ON OXYGEN AT 4/L VIA NASAL CANNULA. HIS NURSE STATES HIS O2 SAT WAS 89% ON 2/L THIS AM, THEREFORE THE OXYGEN WAS INCREASED TO GET O2 SAT ABOVE 90%. HE DOES NOT HAVE OXYGEN AT HOME. PRIMARY NURSE WILL CHECK ROOM HIS SATS AGAIN AFTER HE AMBULATES. SHE WILL ADVISE PCP OF ABOVE READINGS. PATIENT DENIES ANY NEEDS. HAD NO QUESTIONS OR CONCERNS. PCP- DR AGUIRRE CARDILOGIST- DR HOLLOWAY DCP- Discharge Planning Updated by [email or web address]: Nita Fernandez on 02/11/19 9:[address] Patient Name: JESUS MUHAMMAD Admission Status: ER Accout number: [id number] Admission Date: 02-10-2019 : 1935 Admission Diagnosis: Attending: MACI MOSER Current LOS: 1 Anticipated DC Date: 02-09-2019 Planned Disposition: Home Primary Insurance: MEDICARE A & B Discharge Planning Comments: CM met with patient about discharge planning. CM explained CM role and verbal consent was given to do dc assessment. CM educated on Home Health, DME and rehab services that are available. Patient states his discharge plan is to return to home . States home environment is safe for DC. Denies any discharge planning needs at this time. States or son will drive him home upon discharge. CM will continue to follow and assist as needed with discharge planning needs. [employer] Consultant: Nitashahriar Fernandez DCPIA - Discharge Planning Initial Assessment Updated by [email or web address]: Nita Fernandez on 02/11/19 10:31 am * Is the patient Alert and Oriented? Yes * How many steps to enter\exit or inside your home? na * PCP [place] * Pharmacy [facility] * Preadmission Environment Home with Family * ADLs Independent * Verbal permission to speak to the caregivers and representatives has been obtained from the patient. N/A * Community resources currently utilized None * Additional services required to return to the preadmission environment? No * Can the patient safely return to the preadmission environment? Yes * Has this patient been hospitalized within the prior 30 days at any hospital? No Last DP export: 02/13/19 8:42 am Patient Name: JESUS MUHAMMAD Page [id number] at 0950 All edits/amendments must be made on the electronic document DICTATION DATE: 02/13/19948 REGISTERED NURSE SUPERVISOR: ASHISH 02/13/19948 RPT#: [id number] DC DATE: STATUS: ADM IN [facility] [address] [place] [address] END OF REPORT
[2019-02-13 10:20] LABS: BASOPHILS 0.2 % (0-2); HEMOGLOBIN 13.3 g/dL (13.5-17.5); IMMATURE GRANULOCYTES 0.2 % (0-5); LYMPHOCYTES 11.3 % (15-50); MCH 32.5 pg (26.0-34.0); MCHC 33.3 g/dL (31.0-37.0); MCV 97.8 fL (80.0-100.0); MONOCYTES 12.2 % (2-11); NEUTROPHILS 74.1 % (40-80); PLATELET COUNT 107 10x3/uL (130-400); RBC 4.09 10x6/uL (4.20-6.10); WBC 5.9 10x3/uL (4.8-10.8)
[2019-02-13 10:34] LABS: ANION GAP 10.3 mmol/L (8-16); CARBON DIOXIDE 25.7 mmol/L (21.0-32.0); CREATININE - SERUM 1.6 mg/dL (0.6-1.3)
--- NOTE | 2019-02-13 13:20 | NUR ---
ABG DONE, PO2 56 AND O2 SATURATION OF 89.9% PLACED PT ON 2L O2 CANNULA
[2019-02-13 14:06] VITALS: BMI 25.2
--- NOTE | 2019-02-13 14:09 | NUR ---
SINA WITH DR. SMITH/RASHAUN FORREST RN, TO BE DISCHARGED FROM SURGERY [facility].
--- NOTE | 2019-02-13 15:39 | NUR ---
I have reviewed this patient and I concur with the Shift Assessment completed by the Licensed Practical Nurse today this shift.
[2019-02-13] MEDS ORDERED: LOVENOX80 MG/0.8 SC (16:54)
--- NOTE | 2019-02-13 17:58 | NUR ---
PT DISCHARGED HOME VIA WHEELCHAIR WITH SPOUSE. DISCONTINUED IV, CATHETER TIP INTACT. WENT OVER DISCHARGE INSTRUCTIONS WITH PT, PT ACKNOWLEDGED INSTRUCTIONS AND ANSWERED PT QUESTIONS. PT DENIES ANYTHING FURTHER. NO S/S OF ACUTE DISTRESS NOTED. NO C/O PAIN.
--- NOTE | 2019-02-14 08:27 | MORECARE ---
CASE MANAGEMENT DISCHARGE SUMMARY PATIENT: JESUS MUHAMMAD UNIT: [id number] ADM DATE: 02/10/19 AGE: 84 : 34 SEX: M ROOM/BED: D.1204 AUTHOR: GEORGE,DOC PHYSICIAN: REFERRING PHYSICIAN: MACI MOSER MD DATE OF SERVICE: 02/14/19 Discharge Plan Patient Name: JESUS MUHAMMAD Facility: [facility] : 1935 Planned Disposition: Home Anticipated Discharge Date: 02/09/19 Discharge Date: 02/13/2019 Expected LOS: -1 Initial Reviewer: [email or web address] Initial Review Date: 02/09/2019 Generated: 02/14/19 9:26 am Comments DCP- Discharge Planning Updated by [email or web address]: Gogodimitri Anderson on 02/13/19 8:[address] POSSIBLE DISCHARGE TO HOME TODAY. HE WILL HAVE TRANSPORTATION TO HOME. HIS SON, ECHO, WILL PROVIDE TRANSPORTATION. PATIENT HAS BEEN FOR 60 YRS. LIVES W/ HIS . HE DOES NOT HAVE HOME HEALTH SERVICES. HIS IS ACTIVE WITH [employer]. HE DOES NOT FEEL HE WILL NEED ANY SERVICES. HE IS PRESENTLY ON OXYGEN AT 4/L VIA NASAL CANNULA. HIS NURSE STATES HIS O2 SAT WAS 89% ON 2/L THIS AM, THEREFORE THE OXYGEN WAS INCREASED TO GET O2 SAT ABOVE 90%. HE DOES NOT HAVE OXYGEN AT HOME. PRIMARY NURSE WILL CHECK ROOM HIS SATS AGAIN AFTER HE AMBULATES. SHE WILL ADVISE PCP OF ABOVE READINGS. PATIENT DENIES ANY NEEDS. HAD NO QUESTIONS OR CONCERNS. PCP- DR GAUIRRE CARDILOGIST- DR HOLLOWAY DCP- Discharge Planning Updated by [id number]: Nita Fernandez on 02/11/19 9:[address] Patient Name: JESUS MUHAMMAD Admission Status: ER Accout number: [id number] Admission Date: 02-10-2019 : 1935 Admission Diagnosis: Attending: MACI MOSER Current LOS: 1 Anticipated DC Date: 02-09-2019 Planned Disposition: Home Primary Insurance: MEDICARE A & B Discharge Planning Comments: CM met with patient about discharge planning. CM explained CM role and verbal consent was given to do dc assessment. CM educated on Home Health, DME and rehab services that are available. Patient states his discharge plan is to return to home . States home environment is safe for DC. Denies any discharge planning needs at this time. States or son will drive him home upon discharge. CM will continue to follow and assist as needed with discharge planning needs. Nursing Program Manager: Nita Fernandez DCPIA - Discharge Planning Initial Assessment Updated by [email or web address]: Nita Fernandez on 02/11/19 10:31 am * Is the patient Alert and Oriented? Yes * How many steps to enter\exit or inside your home? na * PCP [place] * Pharmacy [facility] * Preadmission Environment Home with Family * ADLs Independent * Verbal permission to speak to the caregivers and representatives has been obtained from the patient. N/A * Community resources currently utilized None * Additional services required to return to the preadmission environment? No * Can the patient safely return to the preadmission environment? Yes * Has this patient been hospitalized within the prior 30 days at any hospital? No Last DP export: 02/13/19 8:50 am Patient Name: JESUS MUHAMMAD Page [phone] at 0827 All edits/amendments must be made on the electronic document DICTATION DATE: 02/14/19825 VECTOR CONTROL ASSISTANT: ASHISH 02/14/19825 RPT#: [id number] DC DATE:02/13/19 STATUS: DIS IN [facility] [address] [place] [address] END OF REPORT
--- NOTE | 2019-02-14 11:52 | EC ---
PATIENT:JESUS MUHAMMAD DATE OF SERVICE: 02/10/19 SEX: M MEDICAL RECORD: [id number] DATE OF : 33 LOCATION:D.M3 D.120 AGE OF PATIENT: 84 ADMISSION DATE: 02/10/19 REFERRING PHYSICIAN: INTERPRETING PHYSICIAN: ALE MOORE MD ECHOCARDIOGRAM REPORT ECHO CHARGES 4 ECHO COMPLETE Date: 02/10/19 CLINICAL DIAGNOSIS: DCM ECHOCARDIOGRAPHIC MEASUREMENTS (adult normal given) AC root (d.<3.7cm) 1.8 cm LV Septum d (<1.2 cm> 1.6 cm Valve Excursion 1.2 cm LV Septum (systole) 2.1 cm Left Atria (s.<4.0cm> 3.6 cm LVPW d(<1.2cm) 1.5 cm RV (d.<2.3cm) 3.4 cm LVPW (sytole) 1.8 cm LV diastole(<5.6CM) 6.0 cm MV E-F(>70mm/sec) cm LV systole 4.9 cm LVOT Diameter 1.8 cm MV exc.(>10mm) cm Est.ejection fraction (50-75%) % DOPPLER: LVIT cm/sec A 28 cm/sec E 78 cm/sec LA cm/sec RVSP 33.5 mmHg LVOT 59 cm/sec AOP1/2T m/s Asc. Ao 215 cm/sec RVOT 57 cm/sec RA cm/sec PA 78 cm/sec AV Gradient Peak 18.4 mmHg AV Mean 11.8 mmHg AV Area 0.9 cm MV Gradient Peak 4.2 mmHg MV Mean 2.2 mmHg MV Area cm COMMENTS: Professional Skateboarder: Hernandez [facility] Breakfast Hostess: 1 Dr. Moore TAPE# PACS Pericardial Effusion N DATE OF SERVICE: 02/10/2019 FINDINGS: 1. Left ventricular chamber size is dilated. Left ventricular systolic function is moderately reduced. Overall ejection fraction 35%. 2. Left atrium is within normal limits. Right atrium and right ventricular chamber sizes are moderately dilated. 3. 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 The valve area calculates to 0.9 cm-squared and there is a gradient of 18 mm across the valve. This is mild aortic stenosis. ECHOCARDIOGRAM REPORT [id number] JESUS MUHAMMAD The remaining valvular structures have normal structure and motion. 4. Doppler interrogation elsewise reveals mild aortic insufficiency, moderate mitral regurgitation, moderate tricuspid regurgitation. No other valvular insufficiency or stenosis. Pulmonary systolic pressure is normal, estimated 33 mmHg. 5. No evidence of pericardial effusion or left ventricular thrombus. TRANSINT:[id number] Voice Confirmation ID: [id number] DOCUMENT ID: [id number] ALE MOORE MD at 1152 CC: [id number] DICTATION DATE: 02/11/19 1208 MACHINE I ENGRAVER: 02/11/19 1230 DIS IN 02/13/19 [facility] [address] [place] [address]
== END 2019-02-13 18:00 | disposition home or self-care (01) | DRG 418 ==
LOC: D.ER 06:32 → D.EDHOLD 10:44 → D.M3 10:44 → OBSVTIME 10:45 → D.M3 11:07
PROVIDERS: Family Medicine; Surgery; ADMIT Family Medicine; ATTEND Family Medicine
PROC: 0FT44ZZ Resection of Gallbladder, Percutaneous Endoscopic Approach (ICD-10-PCS; principal; 2019-02-12 13:00)
DX: K80.12 Calculus of gallbladder with acute and chronic cholecystitis without obstruction (principal); I50.22 Chronic systolic (congestive) heart failure; I25.10 Atherosclerotic heart disease of native coronary artery without angina pectoris; I48.91 Unspecified atrial fibrillation; I25.5 Ischemic cardiomyopathy; I08.0 Rheumatic disorders of both mitral and aortic valves; I11.0 Hypertensive heart disease with heart failure; E11.9 Type 2 diabetes mellitus without complications; Z95.0 Presence of cardiac pacemaker; R09.02 Hypoxemia

== ENCOUNTER → 2020-01-19 18:22 | Outpatient (CLI) | payer MEDICARE, OTHER ==
[~2020-01-19 18:22] MED LIST changes: +HYDROCODON-ACE1 EAC7 PO; +LOVENOX80 MG/0.8 SC
[2020-01-19 19:03] LABS: INR 1.24 (0.85-1.17); PROTIME 15.5 SECONDS (11.6-15.0)
== END | disposition home or self-care (01) ==
LOC: D.LABREF 18:22
PROVIDERS: ATTEND Family Medicine
DX: Z79.01 Long term (current) use of anticoagulants (principal)

== ENCOUNTER → 2020-01-26 19:43 | Outpatient (CLI) | payer OTHER ==
[2020-01-26 20:27] LABS: INR 2.42 (0.85-1.17); PROTIME 25.9 SECONDS (11.6-15.0)
== END | disposition home or self-care (01) ==
LOC: D.LABREF 19:43
PROVIDERS: ATTEND Family Medicine
DX: Z79.01 Long term (current) use of anticoagulants (principal)

== ENCOUNTER → 2020-01-30 15:30 | Outpatient (CLI) | payer OTHER ==
[2020-01-30 19:04] LABS: INR 3.01 (0.85-1.17); PROTIME 30.7 SECONDS (11.6-15.0)
== END | disposition home or self-care (01) ==
LOC: D.LABREF 15:30
PROVIDERS: ATTEND Family Medicine
DX: Z79.01 Long term (current) use of anticoagulants (principal)